=== PATIENT | female | born 1955 | race African-American/Black ===

== ENCOUNTER 2017-03-22 14:34 | Inpatient (IN) | payer OTHER ==
[2017-03-22] VITALS (23 sets, daily range): BP systolic 67–124; BP diastolic 33–88; PULSE 94–135; RESP 12–20; TEMP 96.5; Ht 170.2 cm; Wt 86.2 kg
[~2017-03-22] VITALS: Ht 170.2 cm; Wt 86.2 kg
[2017-03-22] MEDS ORDERED: SOD CHLORIDE 0.9% 500 ML IV STA (14:41)
--- NOTE | 2017-03-22 15:18 | RADRPT ---
PROCEDURE: CT Brain without contrast. CLINICAL INDICATION: Fall. Respiratory distress. Cardiac arrest. TECHNIQUE: A CT of the brain was performed on a GE 64-slice CT scanner utilizing axial imaging fro m the skull base through the vertex without intravenous contrast. Multiplanar reformatted images wer e made. The CTDIvol is 45.01 mGy and the DLP is 720.23 mGycm. DICOM images are available. One or more of the following dose reduction techniques were used: - Automated exposure control. - Adjustment of the mA and/or kV according to patient size. - Use of iterative reconstruction technique. COMPARISON: None. FINDINGS: There is no intracranial hemorrhage, mass effect, or midline shift. No extra-axial fluid collection is seen. Mild parenchymal volume loss is identified. The ventricles are proportionate in size. The re is no evidence of hydrocephalus. Moderate decreased attenuation is seen in the periventricular a nd deep white matter, compatible with microvascular ischemic disease. The pace white matter differen tiation is well preserved with no acute infarct detected. The osseous structures and visualized paranasal sinuses are unremarkable. IMPRESSION: 1. No evidence of acute intracranial pathology. 2. Mild generalized parenchymal volume loss. 3. Moderate microvascular ischemic disease in the periventricular and deep white matter. RPTAT: HRSR Physician Nikolai Date Time Electronically viewed and signed by Physician Nikolai on 03/22/2017 15:18 RR/
[2017-03-22] MEDS ORDERED: EPINEPHrine 0.1 MG/ML SYG ONE (16:00)
[2017-03-22] MEDS ORDERED: ATROPINE 1 MG/10 ML SYRINGE ONE (16:00)
[2017-03-22] MEDS ORDERED: NA BICARBONATE 8.4% 50 ML SYG ONE ×2 (16:00→21:03)
[2017-03-22 16:06] LABS: PT RATIO 1.6
--- NOTE | 2017-03-22 16:09 | ERD ---
ER Documentation Chief Complaint Chief Complaint STEMI HPI This is a 61-year-old female who was transferred here from [place] for STEMI. The ER physician there called me at home and the patient got to the emergency room there and then had sudden respiratory distress and had an EKG that demonstrated inferior STEMI with reciprocal changes. He said he try to transfer to [facility] but they would not accept his it did not feel like the EKG showed a STEMI. When EMS arrived with the patient she was on a dopamine drip and was intubated. Apparently the patient had coded at [place] for a few minutes and went into [facility] then was resuscitated. I did not know of this incident from the ER physician there. On arrival the patient is intubated and on a dopamine drip. The report from the emergency room nurse from [place] , who accompanied the patient, was at the patient was standing on a stool and fell. Again, I was not notified of this from the emergency room physician report. Family arrived at the emergency department approximately 330 and told me that she was standing on a step stool in the bathroom cleaning the wall when she lost her balance and fell hitting her left upper quadrant on the side of the toilet. The patient was having vomiting at home that was nonbloody and started having uncontrollable bowel movements. She refused to go to the emergency room for a few hours and they convinced her to go and they went to [place]. ROS All systems reviewed and are negative except as per history of present illness. FmHx Unable to obtain due to intubation Physical Exam Vitals Vital Signs Date Time Temp Pulse Resp B/P Pulse Ox O2 Delivery O2 Flow Rate FiO2 03/22/17 15:10 91 25 100 100 03/22/17 14:45 94.5 97 20 94/72 88 Physical Exam Const: Well-developed, well-nourished Head: Atraumatic, normocephalic Eyes: Normal Conjunctiva, bilateral pupils are dilated and sluggish, normal sclera, no nystagmus ENT: Normal External Ears, Nose and Mouth, moist mucus membranes, intubated. Neck: C-collar applied] Resp: Clear to auscultation bilaterally, no wheezing, rhonchi, rales Cardio: Irregular rhythm normal rate , no murmurs, S1 S2 present Abd: Soft, non distended, no pulsitile abdominal masses Skin: No petechiae or rashes, no ecchymosis , no maculopapular rash Back: Unexamined Ext: No cyanosis, or edema,normal inspection, vascularly intact x 4 Neur: GCS of 3 Psych: Unable to obtain Result Diagram: 03/22/17 1615 03/22/17 1615 Results 24 hrs Laboratory Tests Test 03/22/17 16:15 White Blood Count 14.410^3/ul Red Blood Count 1.3910^6/ul Hemoglobin 4.2g/dl Hematocrit 14.1% Mean Corpuscular Volume 101.4fl Mean Corpuscular Hemoglobin 30.2pg Mean Corpuscular Hemoglobin Concent 29.8g/dl Red Cell Distribution Width 13.5% Platelet Count 00462^3/UL Mean Platelet Volume 10.9fl Neutrophils % % Segmented Neutrophils % (Manual) 58% Band Neutrophils % (Manual) 20% Lymphocytes % % Lymphocytes % (Manual) 19% Monocytes % % Monocytes % (Manual) 1% Eosinophils % % Basophils % % Myelocytes % (Manual) 2% Nucleated Red Blood Cells % 0.2/100WBC Neutrophils # 10^3/ul Neutrophils # (Manual) 8.810^3/ul Band Neutrophils # 2.810^3/ul Absolute Lymphocytes (Manual) 2.710^3/ul Lymphocytes # 10^3/ul Monocytes # 10^3/ul Absolute Monocytes (Manual) 0.110^3/ul Eosinophils # 10^3/ul Basophils # 10^3/ul Myelocytes # 0.210^3/ul Nucleated Red Blood Cells # 10^3/ul Platelet Estimate DECREASED Hypochromasia 1+ Poikilocytosis 2+ Anisocytosis 1+ Macrocytosis 2+ Prothrombin Time 22.9Sec Prothrombin Time Ratio 1.6 INR International Normalized Ratio 1.97 Activated Partial Thromboplast Time > 180.0Sec Sodium Level 142mmol/L Potassium Level 3.6mmol/L Chloride Level 112mmol/L Carbon Dioxide Level 5mmol/L Anion Gap 29 Blood Urea Nitrogen 12mg/dl Creatinine 1.44mg/dl Glucose Level 343mg/dl Calcium Level 7.3mg/dl Total Bilirubin 0.1mg/dl Direct Bilirubin 0.00mg/dl Indirect Bilirubin 0.1mg/dl Aspartate Amino Transf (AST/SGOT) 541IU/L Alanine Aminotransferase (ALT/SGPT) 468IU/L Alkaline Phosphatase 68IU/L Troponin I 0.038ng/ml B-Type Natriuretic Peptide 729PG/ML Total Protein 4.4g/dl Albumin 2.0g/dl Globulin 2.40g/dl Albumin/Globulin Ratio 0.83 Lipase 388U/L Current Medications Medications (Trade) Dose Ordered Sig/[place] Route PRN Reason Start Time Stop Time Status Last Admin Dose Admin Sodium Chloride (NS) 500 ml @ 500 mls/hr Q1H STAT IV 03/22/17 14:41 03/22/17 15:40 DC IV Flush 10 ml 10 ml STK-MED ONCE .ROUTE 03/22/17 16:16 03/22/17 16:17 DC Sodium Chloride 100 ml @ ud STK-MED ONCE .ROUTE 03/22/17 16:16 03/22/17 16:17 DC Iohexol (Omnipaque) 100 ml @ ud STK-MED ONCE .ROUTE 03/22/17 16:16 03/22/17 16:17 DC Iohexol (Omnipaque 350mg/ ml) 50 ml STK-MED ONCE .ROUTE 03/22/17 16:16 03/22/17 16:17 DC Gelatin (Gelfoam) 4 sponge STK-MED ONCE .ROUTE 03/22/17 17:37 03/22/17 17:38 DC Thrombin 80566 units 30,000 units STK-MED ONCE .ROUTE 03/22/17 17:37 03/22/17 17:38 DC Heparin Sodium/ Sodium Chloride (Heparin 1000 Units/NS (A-Line)) 500 ml @ ud STK-MED ONCE .ROUTE 03/22/17 17:37 03/22/17 17:38 DC Procedures/MDM PROCEDURE: CT Brain without contrast. CLINICAL INDICATION: Fall. Respiratory distress. Cardiac arrest. TECHNIQUE: A CT of the brain was performed on a GE 64-slice CT scanner utilizing axial imaging from the skull base through the vertex without intravenous contrast. Multiplanar reformatted images were made. The CTDIvol is 45.01 mGy and the DLP is 720.23 mGycm. DICOM images are available. One or more of the following dose reduction techniques were used: - Automated exposure control. - Adjustment of the mA and/or kV according to patient size. - Use of iterative reconstruction technique. COMPARISON: None. FINDINGS: There is no intracranial hemorrhage, mass effect, or midline shift. No extra- axial fluid collection is seen. Mild parenchymal volume loss is identified. The ventricles are proportionate in size. There is no evidence of hydrocephalus. Moderate decreased attenuation is seen in the periventricular and deep white matter, compatible with microvascular ischemic disease. The pace white matter differentiation is well preserved with no acute infarct detected. The osseous structures and visualized paranasal sinuses are unremarkable. IMPRESSION: 1. No evidence of acute intracranial pathology. 2. Mild generalized parenchymal volume loss. 3. Moderate microvascular ischemic disease in the periventricular and deep white matter. RPTAT: HRSR Physician Nikolai Date Time Electronically viewed and signed by Josue Solis Physician on 03/22/2017 15 :18 RR/ CC: KRISTI BHAGAT DO Reviewed [place] EKG and this is not a STEMI., [place] was shown and agreed, dr hickey Central Line Placement by me: Patient consented, sterilely draped, full prep, gown, glove, mask, time out performed. Anesthesia: None Location: Right femoral Device: Multiple lumen Technique: Seldinger technique. Secured with suture. Results: Venous return from all ports with easy saline flush. No complications. [XOXOXO]Guide wire retrieved and disposed of. FAST exam done by a supply technician with preliminary report at bedside with spleen laceration with hematoma around it with extensive amount of echogenic fluid in the abdominal cavity on the right and left side consistent with blood Spoke with general surgery Dr. De Jesus at 1610. Told me to get a CT abdomen with IV contrast that he will be here in 30 minutes. Will start O- blood now blood pressure is labile. EKG: Rate/Rhythm: Atrial fibrillation heart rate 104, ST elevation in lead III, ST depression in lead I and aVL, in all precordial leads QRS, ST, QT: NORMAL UT, QRS, QT] Impression: Abnormal EKG Critical Care Time: 60 minutes Treatments/Evaluations: Close monitoring and treatment of unstable vital signs, cardiorespiratory, and neurologic status, while maintaining tight balance of fluid, respiratory, and cardiac interventions. This time includes discussing the case with the patient and the patient's family. This time does not include all procedures stated elsewhere in this record. This time also includes reviewing old records, labs and radiological studies. This time includes examining and re-examining the patient. Additionally, this time also includes arranging care with admitting and consulting physicians. Hemoglobin returned at 4.2. Dr. De Jesus notified. He is here in the ER seeing her at 1640. Patient is going to the OR. He reviewed the CAT scan which demonstrates active bleeding. She has been type and cross for 4 units we will add 4 more. O- blood is being hung now approximately 5 PM Patient will go to the OR now for operative repair of the spleen , or removal The patient's PTT came back greater than 180 with an INR 1.96. The patient did receive heparin according to paperwork from [facility]. I will order protamine sulfate 50 mg IV as well as 3 units of FFP to be given stat prior to OR now. Departure Diagnosis: Primary Impression: Splenic laceration Encounter type: initial encounter Qualified Code: S36.039A - Laceration of spleen, initial encounter Additional Impressions: Hypotension Hypotension type: unspecified hypotension type Qualified Code: I95.9 - Hypotension, unspecified hypotension type Cardiac arrest Condition: Critical KRISTI BHAGAT DO Mar 22, 2017 16:09
[2017-03-22] MEDS ORDERED: SOD CHLORIDE 0.9% 100 ML ONE (16:16)
[2017-03-22] MEDS ORDERED: IOHEXOL 350MG/ML 50 ML BTL ONE (16:16)
[2017-03-22] MEDS ORDERED: IOHEXOL 100 ML ONE (16:16)
[2017-03-22 16:28] LABS: ALBUMIN/GLOBULIN RATIO 0.83; BILIRUBIN,INDIRECT 0.1 mg/dl (0-1.1); BILIRUBIN,TOTAL 0.1 mg/dl (0.2-1.3); CALCIUM 7.3 mg/dl (8.4-10.2); CREATININE 1.44 mg/dl (0.44-1.00); POTASSIUM 3.6 mmol/L (3.5-5.1); TOTAL PROTEIN 4.4 g/dl (6.1-8.1)
[2017-03-22 16:32] LABS: ABNORMAL IP MESSAGE 1; HEMATOCRIT 14.1 % (37.0-47.0); MEAN CORPUSCULAR HEMOGLOBIN 30.2 pg (29.0-33.0); MEAN CORPUSCULAR HGB CONC 29.8 g/dl (32.0-37.0); MEAN CORPUSCULAR VOLUME 101.4 fl (82.0-101.0); MEAN PLATELET VOLUME 10.9 fl (7.4-10.4); NUCLEATED RED BLOOD CELLS% 0.2 /100WBC (0.0-0.0); PLATELET COUNT 112 10^3/UL (140-415); RED BLOOD COUNT 1.39 10^6/ul (4.20-5.40); RED CELL DISTRIBUTION WIDTH 13.5 % (11.5-14.5); WHITE BLOOD COUNT 14.4 10^3/ul (4.8-10.8)
[2017-03-22 16:36] LABS: TROPONIN-I 0.038 ng/ml (0.00-0.12)
[2017-03-22 16:38] LABS: HEMOGLOBIN 4.2 g/dl (12.0-16.0); POSITIVE DIFF @See below
[2017-03-22 16:55] LABS: INR 1.97; PROTIME 22.9 Sec (11.9-14.9)
--- NOTE | 2017-03-22 16:58 | CONS ---
Date/Time of Note Date/Time of Note DATE: 03/22/17 TIME: 16:54 Assessment/Plan Assessment/Plan Additional Assessment/Plan Splenic rupture with active extravasation Patient requires urgent laparotomy and splenectomy I discussed the benefits, risks, alternatives in detail with the . All questions were answered. The patient elects to proceed Consultation Date/Type/Reason Admit Date/Time Date of Consultation: Mar 22, 2017 Hx of Present Illness The patient is a 7-year-old female who was transferred from an outside hospital for with a diagnosis of STEMI. However, on further workup in the ER here, patient was found to have a ruptured spleen. The patient is now currently intubated on pressors. A CT with IV contrast shows active extravasation. I am unable to get more history from the patient as she is intubated. I was called for consultation. Past Medical History Medical History: other (Unable to obtain) Past Surgical History Past Surgical Hx: other (Unable to obtain) Family History Significant Family History: other (Unable to obtain) Social History Smoking Status: Never smoker Exam/Review of Systems Vital Signs Vitals Vital Signs Date Time Temp Pulse Resp B/P Pulse Ox O2 Delivery O2 Flow Rate FiO2 03/22/17 15:10 91 25 100 100 03/22/17 14:45 94.5 94/72 Exam Constitutional: other (Intubated and sedated) Head: normocephalic Eyes: nl conjunctiva ENMT: nl external ears & nose Neck: supple Respiratory: clear to auscultation Cardiovascular: regular rate and rhythm Gastrointestinal: other (Moderately distended and left upper quadrant tenderness) Neurological: UNIVERSITY PROFESSOR II-XII intact Skin: nl turgor Results Result Diagram: 03/22/17 1615 03/22/17 1615 Results 24 hrs Laboratory Tests Test 03/22/17 16:15 White Blood Count 14.4 H Red Blood Count 1.39 L Hemoglobin 4.2 *L Hematocrit 14.1 L Mean Corpuscular Volume 101.4 H Mean Corpuscular Hemoglobin 30.2 Mean Corpuscular Hemoglobin Concent 29.8 L Red Cell Distribution Width 13.5 Platelet Count 112 L Mean Platelet Volume 10.9 H Neutrophils % Lymphocytes % Monocytes % Eosinophils % Basophils % Nucleated Red Blood Cells % 0.2 H Neutrophils # Lymphocytes # Monocytes # Eosinophils # Basophils # Nucleated Red Blood Cells # Prothrombin Time Pending Prothrombin Time Ratio 1.6 INR International Normalized Ratio Pending Activated Partial Thromboplast Time Pending Sodium Level 142 Potassium Level 3.6 Chloride Level 112 H Carbon Dioxide Level 5 *L Anion Gap 29 H Blood Urea Nitrogen 12 Creatinine 1.44 H Glucose Level 343 H Calcium Level 7.3 L Total Bilirubin 0.1 L Direct Bilirubin 0.00 Indirect Bilirubin 0.1 Aspartate Amino Transf (AST/SGOT) 541 H Alanine Aminotransferase (ALT/SGPT) 468 H Alkaline Phosphatase 68 Troponin I 0.038 B-Type Natriuretic Peptide 729 H Total Protein 4.4 L Albumin 2.0 L Globulin 2.40 Albumin/Globulin Ratio 0.83 Lipase 388 H Imaging Free Text/Dictation CT of the abdomen and pelvis, which I discussed with Dr. Millan, shows active extravasation from the spleen THOM MCGOVERN MD Mar 22, 2017 16:58
[2017-03-22 17:15] LABS: ANISOCYTOSIS 1+ (0-0); BURR CELLS 2+ (0-0); HYPOCHROMASIA 1+ (0-0); MONOCYTES % (M) 1 % (0-11); MYELOCYTES % (M) 2 % (0-0); PLATELET ESTIMATE DECREASED; POIKILOCYTOSIS 2+ (0-0)
[2017-03-22] MEDS ORDERED: THROMBIN 5000 UNIT VIAL ONE (17:37)
[2017-03-22] MEDS ORDERED: GELATIN SIZE 100 SPONGE ONE (17:37)
[2017-03-22 17:44] LABS: PARTIAL THROMBOPLASTIN TIME > 180.0 Sec (25.0-35.0)
--- NOTE | 2017-03-22 17:52 | RADRPT ---
PROCEDURE: CT abdomen and pelvis with contrast. CLINICAL INDICATION: Abdominal pain following trauma TECHNIQUE: CT scan of the abdomen and pelvis with contrast was performed. Coronal and sagittal im ages were also reformatted. 100 cc Omnipaque-300 intravenous contrast was administered without comp lication. One or more of the following dose reduction techniques were used: Automated exposure contr ol, adjustment of the mA and/or kV according to patient size, use of iterative reconstruction techni que. Total exam CTDIvol = 17.51 mGy and DLP = 99 93.43 mGy-cm. COMPARISON: Ultrasound 03/22/2017 FINDINGS: Visualized lower thorax: Bibasilar dependent subsegmental atelectasis is present greater on the righ t. A tiny left posterior costophrenic angle pneumothorax is present. There is no evidence for pleur al effusion. Liver, gallbladder, pancreas and spleen: Some nodular appearance to the hepatic contour is noted un able to exclude early changes of cirrhosis with hepatic steatosis, the liver normal in size. There is no evidence of hepatic laceration or subcapsular hematoma. No liver mass or ductal dilatation is present. The hepatic arterial system is unremarkable. The gallbladder is unremarkable. No common b ile duct dilatation is evident. The pancreas is normal. The spleen is markedly abnormal without co ntrast extravasation, findings compatible with splenic rupture with adjacent hemoperitoneum. Adrenal glands and genitourinary system: The adrenal glands are normal bilaterally. The kidneys kate w mild renal cortex thinning but otherwise unremarkable. The ureters are unremarkable. The urinary bladder is contracted around a [place] catheter. The uterus is either atrophic or surgically removed , not well visualized. Gastrointestinal system: A nasogastric tube is present within the stomach, the stomach contracted a round it. There is some mild thickening of the wall of the jejunum but there is enhancement of the bowel wall and no evidence of ileus or obstruction. There is no evidence of appendicitis. A normal amount of fecal debris is present within the colon and there is no wall thickening to suggest coliti s. Peritoneum, retroperitoneum, vessels and lymph nodes: The abdominal aorta is normal in caliber. Th ere is mild aortic atherosclerotic calcification. Inferior vena cava is small in size raising concer n for hypovolemia. There is no evidence for adenopathy. A moderate amount of peritoneal cavity flu id is present with an attenuation of 26 HU most compatible with hemoperitoneum. There is no evidence of pneumoperitoneum. Osseous structures and musculoskeletal system: The visualized lower ribs show no evidence of fractu re. There is no finding to suggest lumbosacral fracture. Incidental degenerative anterolisthesis of L4-5 is present. The pelvic bones and proximal femoral unremarkable. No subcutaneous abnormalities are present. RPTAT:HJJR IMPRESSION: 1. Abnormal extravasation within the a scattered lacerated spleen, the splenic injury believed to be grade IV-V. 2. Moderate to marked hemoperitoneum is present. Critical results discussed by telephone with Dr. Ale avila at 17:09 3. Tiny left inferior pneumothorax. 4. No evidence of obvious fracture. 5. Nasogastric tube and right inguinal central venous access catheter in satisfactory positions. Physician Kiko Date Time Electronically viewed and signed by Physician Kiko on 03/22/2017 17:10 JR/
--- NOTE | 2017-03-22 17:52 | RADRPT ---
PROCEDURE: CT cervical spine without contrast CLINICAL INDICATION: Neck pain, trauma TECHNIQUE: CT scan of the cervical spine was performed on a multidetector CT scanner.. No IV cont rast was administered. Coronal and sagittal reformatted images were obtained from the axial source images. Images were reviewed on a high-resolution PACS workstation. CTDI = 22.33 mGy DLP: 61 5.3 mGy-cm DICOM Images are available One or more of the following dose reduction techniques were used: Automated exposure control Adjustment of the mA and / or kV according to patient size Use of iterative reconstruction technique. COMPARISON: None. FINDINGS: There is no CT evidence of acute fracture or subluxation. There is a small remote ununited spinous p rocess fracture of C7 There is straightening and slight reversal of the usual cervical lordosis. Vertebral body heights ar e preserved. There is mild to moderate multilevel degenerative disc disease from C3-C4 through C6-C7 with degener ative anterior enthesopathy and uncovertebral hypertrophy. There is multilevel facet arthrosis, most prominent at C4-C5 on the right, moderate in degree. There is moderate left foraminal stenosis at C5-C6 and mild bilateral foraminal stenosis at C6-C7. The patient is intubated. The lung apices are clear. The paraspinal soft tissues are grossly unremarkable. IMPRESSION: 1. No CT evidence of acute fracture or subluxation of the cervical spine. 2. Slight reversal of the usual cervical lordosis. 2. Mild to moderate multilevel degenerative changes of the cervical spine as above. RPTAT: UU .Tylor More MD, Date Time Electronically viewed and signed by .Tylor More MD, MD on 03/22/2017 15:27 .K/
--- NOTE | 2017-03-22 17:52 | RADRPT ---
PROCEDURE: Chest x-ray CLINICAL INDICATION: Intubation TECHNIQUE: Chest single view COMPARISON: None FINDINGS: There is endotracheal tube which terminates 2.5 cm above the arlene. heart is normal in size. The p ulmonary vessels are normal in caliber. The lungs are clear. The costophrenic angles are sharp. T he visualized bony thorax is unremarkable. IMPRESSION: 1. Endotracheal tube terminates 2.5 cm above the arlene. 2. Lungs clear RPTAT: HH .Cory Abarca MD, Date Time Electronically viewed and signed by .Cory Abarca MD, on 03/22/2017 15:30 .W/
--- NOTE | 2017-03-22 17:52 | RADRPT ---
PROCEDURE: Abdominal ultrasound CLINICAL INDICATION: Abdominal pain TECHNIQUE: Mcmahan scale ultrasound images of the four abdominal quadrant was performed for evaluatio n of ascites/free fluid. COMPARISON: None. FINDINGS: Moderate free fluid. Abnormal echogenicity of the liver and spleen. IMPRESSION: Moderate free fluid. Abnormal echogenicity of the liver and spleen is incompletely assessed. Recommend CT scan of the abd omen and pelvis for further evaluation. RPTAT: AADD .Bowen Alonzo MD, MD Date Time Electronically viewed and signed by .Bowen Alonzo MD, MD on 03/22/2017 16:20 .B/
[2017-03-22] MEDS ORDERED: PROTAMINE 50 MG INJ IV ONE (18:00)
[2017-03-22] MEDS ORDERED: MIDAZOLAM 1 MG/ML 2 ML INJ IV ONE (18:00)
[2017-03-22] MEDS ORDERED: SOD CHLORIDE 0.9% 1,000 ML IV SCH (18:06)
[2017-03-22] MEDS ORDERED: NORepinephrine 8MG/250 ML (PMX 250 ML IV SCH (18:30)
[2017-03-22] MEDS ORDERED: hydrALAzine 20 MG INJ IV PRN (18:30)
[2017-03-22] MEDS ORDERED: ACETAMINOPHEN 325 MG TAB PO PRN (18:30)
[2017-03-22] MEDS ORDERED: morphine 2 MG INJ IV PRN ×2 (18:30→19:00)
[2017-03-22] MEDS ORDERED: ALBUTEROL/IPRATROPIUM (NEB) 3 ML AMP HHN PRN (18:30)
[2017-03-22] MEDS ORDERED: SOD CHLORIDE 0.9% 1,000 ML IV ONE ×5 (18:30→21:30)
[2017-03-22] MEDS ORDERED: HYDROCODONE/APAP (5/325) TAB PO PRN (18:30)
[2017-03-22] MEDS ORDERED: DOCUSATE SODIUM 100 MG CAP PO PRN (18:30)
[2017-03-22] MEDS ORDERED: NITROGLYCERIN (SL) 0.4 MG TAB SL PRN (18:30)
[2017-03-22] MEDS ORDERED: ONDANSETRON 4 MG INJ IV PRN ×2 (18:30→19:00)
[2017-03-22] MEDS ORDERED: NA PHOSPHATE/BIPHOS 133 ML ENEMA PR PRN (18:30)
[2017-03-22] MEDS ORDERED: MAGNESIUM HYDROXIDE 30ML CUP PO PRN (18:30)
[2017-03-22] MEDS ORDERED: LORAZEPAM 2 MG INJ IV PRN (18:30)
[2017-03-22] MEDS ORDERED: NACL 0.9% 3 ML SYG IV SCH (18:30)
[2017-03-22] MEDS: SOD CHLORIDE 0.9% 1,000 ML IV SCH (18:56)
--- NOTE | 2017-03-22 18:59 | SIPON ---
Date/Time of Note Date/Time of Note DATE: 03/22/17 TIME: 18:56 Operative Report Preoperative Diagnosis Splenic rupture Postoperative Diagnosis Same Operation/Procedure Performed Exploratory laparotomy and splenectomy Surgeon see signature line catering administrative assistant Gregorio Kulkarni Anesthesia: general Estimated blood loss: other (More than 4 L of blood in the abdomen but no bleeding from surgery) Transfusion Required 6 units PRBC Specimen Spleen Grafts/Implants none Complications none THOM MCGOVERN MD Mar 22, 2017 18:59
[2017-03-22] MEDS ORDERED: CEFAZOLIN 2 GM/50 ML (PMX) 50 ML IVPB SCH (19:00)
--- NOTE | 2017-03-22 19:05 | OPR ---
Date/Time of Note Date/Time of Note DATE: 03/22/17 TIME: 19:00 Operative Report Procedure Date: Mar 22, 2017 Preoperative Diagnosis Ruptured spleen Postoperative Diagnosis Same Operation/Procedure Performed Exploratory laparotomy and splenectomy Surgeon see signature line Machine Sole Leveler Gregorio Kulkarni MD Second Machine Sole Leveler: LYNN CRANE DO Anesthesia Type: general Estimated Blood Loss: other (6 U PRBC) Transfusion none Specimen Spleen Grafts/Implants none Complications none Disposition: PACU Indications The patient is a 7-year-old female who was transferred from another hospital for possible DE. She is actually found to have an acute abdomen with pneumoperitoneum from a ruptured spleen. She had active extravasation on CT. She was taken urgently to the OR for splenectomy. I discussed expiratory laparotomy and splenectomy with the . All benefits, risks, alternatives discussed in detail. All questions answered. The elected proceed. Procedure Description The patient was brought to operative room. She had been intubated in the ER. SCDs were applied. The abdomen was cleaned prepped and draped in sterile fashion a midline incision was made from the subxiphoid to the like is. Immediately upon entering the abdomen there is approximately 4 L of blood palpated. Suction was placed to evacuate the hemoperitoneum. The spleen was grasped bluntly posteriorly and brought up into the operative field. The spleen was shattered. I was able to control the hilum and placed a clamp across the hilum. The spleen was then transected. I then packed the upper abdomen. The hilum was then tied off with a 0 silk tie. The falciform ligament was taken down between clamps. I visualized my liver. It was hemostatic. I then ran the entire small bowel. There was no small bowel injuries noted. The omentum was normal as well. I then copiously irrigated and aspirated out the abdomen to effluent was clear. I used approximately 5 L of irrigation. I visualized my splenic bled. There was some oozing from short gastrics which was controlled with electrocautery. I then irrigated once again. I visualized the splenic bed. It was hemostatic. All laps were removed. The abdomen was then closed after verifying that sponge and needle counts were correct. The midline wound was closed with 2 0 looped PDS sutures. One started superiorly one started inferiorly and tied in the middle. The wound was then closed with isabell. A dry sterile dressing was applied. THOM MCGOVERN MD Mar 22, 2017 19:04
[2017-03-22] MEDS ORDERED: MIDAZOLAM 1 MG/ML 2 ML INJ ONE (19:06)
[2017-03-22] MEDS ORDERED: DOPamine-D5W 1.6 MG/ML 250 ML ONE (19:44)
[2017-03-22] MEDS ORDERED: ROCURONIUM 50 MG INJ ONE (20:02)
[2017-03-22] MEDS ORDERED: CEFAZOLIN 1 GM INJ ONE (20:02)
[2017-03-22] MEDS ORDERED: CA CHLORIDE 10% 10 ML SYRINGE ONE (20:02)
[2017-03-22 21:00] LABS: ABNORMAL IP MESSAGE 1; MEAN CORPUSCULAR HEMOGLOBIN 31.1 pg (29.0-33.0); MEAN CORPUSCULAR VOLUME 97.1 fl (82.0-101.0); MEAN PLATELET VOLUME 10.8 fl (7.4-10.4); NUCLEATED RED BLOOD CELLS% 0.7 /100WBC (0.0-0.0); PLATELET COUNT 134 10^3/UL (140-415); RED BLOOD COUNT 5.15 10^6/ul (4.20-5.40); RED CELL DISTRIBUTION WIDTH 13.4 % (11.5-14.5); WHITE BLOOD COUNT 18.2 10^3/ul (4.8-10.8)
[2017-03-22] MEDS ORDERED: FAMOTIDINE 20 MG INJ IV SCH (21:00)
[2017-03-22] MEDS ORDERED: SODIUM BICARBONATE (IV ADD) 100 MEQ in DEXTROSE 5% 900 ML IV SCH (21:00)
[2017-03-22 21:05] LABS: INR 2.11; PROTIME 24.2 Sec (11.9-14.9); PT RATIO 1.9
[2017-03-22] MEDS ORDERED: NA BICARBONATE 8.4% 50 ML SYG IV ONE (21:06)
[2017-03-22 21:10] LABS: POTASSIUM 3.9 mmol/L (3.5-5.1)
[2017-03-22 21:12] LABS: CREATININE 1.31 mg/dl (0.44-1.00)
[2017-03-22 21:16] LABS: HOLD TRANSMISSIONS 1; POSITIVE DIFF @See below
[2017-03-22] MEDS ORDERED: VASOPRESSIN 60 UNIT in DEXTROSE 5% 57 ML IV SCH (21:30)
[2017-03-22] MEDS: DOPamine-D5W 1.6 MG/ML 250 ML IV SCH (21:37)
[2017-03-22 21:39] LABS: TROPONIN-I 54.3 ng/ml (0.00-0.12)
[2017-03-22 21:48] LABS: PARTIAL THROMBOPLASTIN TIME 110.6 Sec (25.0-35.0)
[2017-03-22] MEDS ORDERED: PHENYLephrine 40 MG in DEXTROSE 5% 496 ML IV SCH (22:30)
[2017-03-22] MEDS: CEFEPIME 2GM/50 ML (PMX) 50 ML IVPB SCH (22:33)
--- NOTE | 2017-03-22 23:04 | HP ---
Date/Time of Note Date/Time of Note DATE: 03/22/17 TIME: 22:40 Assessment/Plan Lines/Catheters IV Catheter Type (from Nrsg): Central Line Central line still needed: Yes Assessment/Plan Assessment/Plan 1. Splenic rupture, after traumatic fall: status post emergent splenectomy -Currently patient is in critical condition. She is on 5 pressors. -She is status post blood transfusion was normalizing of hemoglobin. Monitor H& H closely -Correct coagulopathy 2. Shock, likely cardiogenic, and from hypovolemia from blood loss -Continue pressure support for now -Cardiology consult. Patient also was elevated troponin -2D echo 3. Status post PEA cardiac arrest with ROSC -Continue pressure support 4. Questionable STEMI -Cardiology consult -Trend troponin 5. Shock liver -Continue stabilizing hemodynamics -Obtain RUQ ultrasound -GI/hepatology consult 6. DIONICIO, from a volume depletion and shock -Continue stabilizing blood pressure -nephrology consult 7. Severe anemia, from splenic rupture -Status post blood transfusion -Monitor H&H and transfuse as needed 8. Severe metabolic acidosis: From shock -Continue bicarb drip HPI/ROS Admit Date/Time Admit Date/Time Hx of Present Illness This is a 61-year-old female with a history of hypertension who initially went to [facility] for shortness of breath, vomiting and diarrhea. Patient was standing on a stool in her bathtub cleaning the wall when she fell down heating the left side of her thorax/abdomen. Patient initially did not want to go to the hospital but after a few hours, when symptoms worsened and with urge of family, patient decided to go to the hospital. At [place] EKG was concerning for inferior STEMI. From the ER note, patient was going to be transferred to [facility] but they refused to accept patient because they did not think EKG was consistent with STEMI. Patient was then transferred to [facility] for higher level care. While she was at [place], she had a PEA cardiac arrest s/p resuscitation with ROSC. She presented to our ER intubated and on a dopamine drip. She was hypotensive with documented blood pressure as low as 39/22. Her hemoglobin was 4.2, bicarb 5, lactic acid 11, creatinine 1.4, glucose 340, AST and ALT about 500. Imaging shows a splenic laceration. Patient was taken to the OR and is now status post splenectomy. Patient received heparin while she was at [facility] and her PTT was 180. She was given protamine, FFP's and blood transfusion prior to surgery. EKG here showed ST elevation in lead II, ST depression and atrial fibrillation. Her initial troponin was negative but the second troponin is around 50. Currently patient is in the ICU, intubated and on 4 pressors. Her pupils are severely dilated and fixed, unresponsive to light. She had an initial ABG that shows pH of 6.5. Repeat ABG now shows a pH of 7.0, bicarb of 11. Also repeat CBC and BMP shows hemoglobin of 16 and slight improvement was her kidney function. PMH/Family/Social Past Medical History Medical History: other (Unable to obtain) Past Surgical History Past Surgical Hx: other (Unable to obtain) Social History Smoking Status: Never smoker Exam/Review of Systems Vital Signs Vitals Vital Signs Date Time Temp Pulse Resp B/P Pulse Ox O2 Delivery O2 Flow Rate FiO2 03/22/17 22:03 135 03/22/17 21:45 20 95/72 100 03/22/17 21:20 60 03/22/17 20:30 92.1 03/22/17 20:15 Mechanical Ventilator 03/22/17 14:45 15.0 Labs Result Diagram: 03/22/17202903/22/17 2030 Medications Medications Current Medications Ondansetron HCl (Zofran Inj) 4 mg Q6H PRN IV NAUSEA AND/OR VOMITING; Start at 18:30 Acetaminophen (Tylenol Tab) 650 mg Q6H PRN PO PAIN LEVEL 1-3 OR FEVER; Start 03/22/17 at 18:30 Acetaminophen/ Hydrocodone Bitart (Rheems (5/325)) 1 tab Q6H PRN PO MODERATE PAIN LEVEL 4-6; Start 03/22/17 at 18:30 Morphine Sulfate (morphine) 2 mg Q4H PRN IV SEVERE PAIN LEVEL 7-10; Start at 18:30 Docusate Sodium (Colace) 100 mg Q12H PRN PO CONSTIPATION; Start 03/22/17 at 18 :30 Magnesium Hydroxide (Milk Of Mag) 30 ml DAILY PRN PO CONSTIPATION; Start 03/22 at 18:30 Sodium Biphosphate/ Sodium Phosphate (Fleet Enema) 133 ml DAILY PRN UT CONSTIPATION; Start 03/22/17 at 18:30 Famotidine (Pepcid Iv) 20 mg Q12 IV Last administered on 03/22/17 21:26; Admin Dose 20 MG; Start 03/22/17 at 21:00 Lorazepam 0.5 mg 0.5 mg Q6H PRN IV ANXIETY; Start 03/22/17 at 18:30 Sodium Chloride (NS) 1,000 ml @ 100 mls/hr Q10H IV Last administered on 20:00; Admin Dose 100 MLS/HR; Start 03/22/17 at 18:06 Hydralazine HCl (Apresoline) 10 mg Q6H PRN IV ELEVATED BLOOD PRESSURE; Start 03/22/17 at 18:30 Nitroglycerin 1 tab 1 tab Q5M PRN SL ANGINA; Start 03/22/17 at 18:30 Cefepime HCl (Maxipime 2gm/50 ml (Pmx)) 50 ml @ 100 mls/hr Q8 IVPB Last administered on 03/22/17 22:33; Admin Dose 100 MLS/HR; Start 03/22/17 at 22: 00 Morphine Sulfate (morphine) 2 mg Q2H PRN IV PAIN LEVEL 6-10; Start 03/22/17 at 19:00 Ondansetron HCl (Zofran Inj) 4 mg Q6H PRN IV NAUSEA AND/OR VOMITING; Start at 19:00 Pantoprazole 40 mg 40 mg DAILY@06 IV ; Start 03/23/17 at 06:00 Sodium Chloride 1,000 ml @ 100 mls/hr Q10H IV ; Start 03/22/17 at 18:56 Sodium Bicarbonate 100 meq/Dextrose 1,000 ml @ 75 mls/hr [id number] IV Last administered on 03/22/17 21:32; Admin Dose 75 MLS/HR; Start 03/22/17 at 21:00 Vasopressin 60 unit/Dextrose 60 ml @ 1.2 mls/hr Q12H IV Last administered on 03/22/17 22:12; Admin Dose 2.4 MLS/HR; Start 03/22/17 at 21:30 Dopamine HCl/ Dextrose 250 ml @ 5.625 mls/ hr TITRATE IV Last administered on 03/22/17 21:37; Admin Dose 42.188 MLS/HR; Start 03/22/17 at 21:30 Phenylephrine HCl/ Dextrose (Teja-Syneph/D5W) 500 ml @ 75 mls/hr TITRATE IV ; Start 03/22/17 at 22:30 EARNEST SALINAS MD Mar 22, 2017 22:50
[2017-03-22 23:06] LABS: EOSINOPHILS # 0.2 10^3/ul (0.0-0.5); EOSINOPHILS % (M) 1 % (0.0-7.0); LYMPHOCYTES # 3.1 10^3/ul (0.8-2.9); MONOCYTE # 0.5 10^3/ul (0.3-0.9); MONOCYTES % (M) 3 % (0-11)
[2017-03-22 23:07] LABS: BURR CELLS 3+
[2017-03-22] MEDS ORDERED: SODIUM BICARBONATE (IV ADD) 100 MEQ in SOD CHLORIDE 0.45% 900 ML IV SCH (23:30)
[2017-03-23] VITALS (39 sets, daily range): BP systolic 1–117; BP diastolic -4–83; PULSE 58–143; RESP 20–23
[2017-03-23 00:24] LABS: HEMATOCRIT 30.1 % (37.0-47.0); HEMOGLOBIN 10.1 g/dl (12.0-16.0)
[2017-03-23] MEDS ORDERED: PHENYLephrine 160 MG in DEXTROSE 5% 484 ML IV SCH (00:30)
[2017-03-23] MEDS ORDERED: NORepinephrine 32 MG in DEXTROSE 5% 218 ML IV SCH (00:30)
[2017-03-23] MEDS: DOPamine-D5W 1.6 MG/ML 250 ML IV SCH ×2 (00:54→05:15)
[2017-03-23] MEDS ORDERED: EPINEPHrine 4 MG in SOD CHLORIDE 0.9% 246 ML IV SCH (02:00)
[2017-03-23] MEDS ORDERED: ALBUMIN HUMAN 25% 300 ML ONE (02:42)
[2017-03-23] MEDS ORDERED: ALBUMIN HUMAN 25% 100 ML IV ONE ×2 (03:00)
[2017-03-23] MEDS ORDERED: SOD CHLORIDE 0.9% 1,000 ML IV ONE (03:00)
[2017-03-23] MEDS: ALBUMIN HUMAN 25% 100 ML IV SCH ×3 (03:01→04:49)
[2017-03-23] MEDS: SOD CHLORIDE 0.9% 1,000 ML IV SCH (04:48)
[2017-03-23] MEDS: CEFEPIME 2GM/50 ML (PMX) 50 ML IVPB SCH (05:15)
[2017-03-23] MEDS ORDERED: PANTOPRAZOLE 40 MG INJ IV SCH (06:00)
[2017-03-23 06:26] LABS: CREATININE 1.9 mg/dl (0.44-1.00); MAGNESIUM 1.4 mg/dl (1.7-2.5); PHOSPHORUS 6.1 mg/dl (2.5-4.9); POTASSIUM 4.2 mmol/L (3.5-5.1)
[2017-03-23 06:32] LABS: HDL CHOLESTEROL 9 mg/dl (35-98); TRIGLYCERIDES 313 mg/dl (0-149)
[2017-03-23 06:33] LABS: CALCIUM 5.6 mg/dl (8.4-10.2)
[2017-03-23 06:35] LABS: CHOLESTEROL < 50 mg/dl (100-200)
[2017-03-23 07:41] LABS: ABNORMAL IP MESSAGE 1; HEMATOCRIT 12.7 % (37.0-47.0); MEAN CORPUSCULAR HEMOGLOBIN 31.3 pg (29.0-33.0); MEAN CORPUSCULAR HGB CONC 32.3 g/dl (32.0-37.0); MEAN CORPUSCULAR VOLUME 96.9 fl (82.0-101.0); NUCLEATED RED BLOOD CELLS% 2.6 /100WBC (0.0-0.0); RED BLOOD COUNT 1.31 10^6/ul (4.20-5.40); RED CELL DISTRIBUTION WIDTH 14.3 % (11.5-14.5); WHITE BLOOD COUNT 7.3 10^3/ul (4.8-10.8)
[2017-03-23] MEDS ORDERED: NA BICARBONATE 8.4% 50 ML SYG ONE (07:45)
[2017-03-23 07:56] LABS: ALBUMIN 1.8 g/dl (3.3-4.9); ALBUMIN/GLOBULIN RATIO 1.38; BILIRUBIN,INDIRECT 0.1 mg/dl (0-1.1); BILIRUBIN,TOTAL 0.1 mg/dl (0.2-1.3); CALCIUM 6.1 mg/dl (8.4-10.2); CREATININE 2.21 mg/dl (0.44-1.00); POTASSIUM 4.5 mmol/L (3.5-5.1); TOTAL PROTEIN 3.1 g/dl (6.1-8.1)
--- NOTE | 2017-03-23 08:00 | DES ---
Date/Time of Note Date/Time of Note DATE: 03/23/17 TIME: 07:55 Discharge/ Summary Admission/Discharge Info Admit Date/Time Mar 22, 2017 at 21:10 Discharge Date/Time Hx of Present Illness This is a 61-year-old female with a history of hypertension who initially went to [facility] for shortness of breath, vomiting and diarrhea. Patient was standing on a stool in her bathtub cleaning the wall when she fell down heating the left side of her thorax/abdomen. Patient initially did not want to go to the hospital but after a few hours, when symptoms worsened and with urge of family, patient decided to go to the hospital. At [place] EKG was concerning for inferior STEMI. From the ER note, patient was going to be transferred to [facility] but they refused to accept patient because they did not think EKG was consistent with STEMI. Patient was then transferred to [facility] for higher level care. While she was at [place], she had a PEA cardiac arrest s/p resuscitation with ROSC. She presented to our ER intubated and on a dopamine drip. She was hypotensive with documented blood pressure as low as 39/22. Her hemoglobin was 4.2, bicarb 5, lactic acid 11, creatinine 1.4, glucose 340, AST and ALT about 500. Imaging shows a splenic laceration. Patient was taken to the OR and is now status post splenectomy. Patient received heparin while she was at [facility] and her PTT was 180. She was given protamine, FFP's and blood transfusion prior to surgery. EKG here showed ST elevation in lead II, ST depression and atrial fibrillation. Her initial troponin was negative but the second troponin is around 50. Currently patient is in the ICU, intubated and on 4 pressors. Her pupils are severely dilated and fixed, unresponsive to light. She had an initial ABG that shows pH of 6.5. Repeat ABG now shows a pH of 7.0, bicarb of 11. Also repeat CBC and BMP shows hemoglobin of 16 and slight improvement was her kidney function. Hospital Course Patient was admitted to the ICU after she had a splenectomy. She had received multiple blood transfusions, FFP's and also initially pro time in to reverse the coagulopathy. During her ICU stay, her pressor requirements has increased, ultimately being placed on 5 pressors including epinephrine. She had severe with metabolic acidosis and has been on bicarb drip. She also had maximally dilated pupils which were nonresponsive. Unfortunately at 7:29AM, patient went into asystole. His compression started and ACLS protocol implemented immediately. Unfortunately we were unable to restore pulse and the patient was pronounced at 7:55 AM. During the code, i.e. cold patient's and informed him about what we were doing. He was planning on coming to see the patient. I have also communicated patient's condition to her and her brother any low last night when the patient was admitted to ICU. . Pending Labs/Cultures Laboratory Tests Test 03/22/17 16:15 03/22/17 20:30 03/23/17 00:05 03/23/17 05:30 White Blood Count 14.410^3/ul (4.8-10.8) 18.210^3/ul (4.8-10.8) Red Blood Count 1.3910^6/ul (4.20-5.40) 5.1510^6/ul (4.20-5.40) Hemoglobin 4.2g/dl (12.0-16.0) 16.0g/dl (12.0-16.0) 10.1g/dl (12.0-16.0) Hematocrit 14.1% (37.0-47.0) 50.0% (37.0-47.0) 30.1% (37.0-47.0) Mean Corpuscular Volume 101.4fl (82.0-101.0) 97.1fl (82.0-101.0) Mean Corpuscular Hemoglobin 30.2pg (29.0-33.0) 31.1pg (29.0-33.0) Mean Corpuscular Hemoglobin Concent 29.8g/dl (32.0-37.0) 32.0g/dl (32.0-37.0) Red Cell Distribution Width 13.5% (11.5-14.5) 13.4% (11.5-14.5) Platelet Count 74465^3/UL (140-415) 32894^3/UL (140-415) Mean Platelet Volume 10.9fl (7.4-10.4) 10.8fl (7.4-10.4) Neutrophils % % (39.0-77.0) % (39.0-77.0) Segmented Neutrophils % (Manual) 58% (39-77) 72% (39-77) Band Neutrophils % (Manual) 20% (0-4) 7% (0-4) Lymphocytes % % (15.0-51.0) % (15.0-51.0) Lymphocytes % (Manual) 19% (15-51) 17% (15-51) Monocytes % % (0.0-11.0) % (0.0-11.0) Monocytes % (Manual) 1% (0-11) 3% (0-11) Eosinophils % % (0.0-7.0) % (0.0-7.0) Basophils % % (0.0-2.0) % (0.0-2.0) Myelocytes % (Manual) 2% (0-0) Nucleated Red Blood Cells % 0.2/100WBC (0.0-0.0) 0.7/100WBC (0.0-0.0) Neutrophils # 10^3/ul (1.6-7.5) 10^3/ul (1.6-7.5) Neutrophils # (Manual) 8.810^3/ul (1.7-7.5) 13.310^3/ul (1.7-7.5) Band Neutrophils # 2.810^3/ul (0.0-0.6) 1.210^3/ul (0.0-0.6) Absolute Lymphocytes (Manual) 2.710^3/ul (0.8-2.9) 3.010^3/ul (0.8-2.9) Lymphocytes # 10^3/ul (0.8-2.9) 3.110^3/ul (0.8-2.9) Monocytes # 10^3/ul (0.3-0.9) 0.510^3/ul (0.3-0.9) Absolute Monocytes (Manual) 0.110^3/ul (0.3-0.9) 0.510^3/ul (0.3-0.9) Eosinophils # 10^3/ul (0.0-0.5) 0.210^3/ul (0.0-0.5) Basophils # 10^3/ul (0.0-0.1) 10^3/ul (0.0-0.1) Myelocytes # 0.210^3/ul (0.0-0.0) Nucleated Red Blood Cells # 10^3/ul (0.0-0.0) 10^3/ul (0.0-0.0) Platelet Estimate DECREASED Hypochromasia 1+ (0-0) Poikilocytosis 2+ (0-0) Anisocytosis 1+ (0-0) Macrocytosis 2+ (0-0) Prothrombin Time 22.9Sec (11.9-14.9) 24.2Sec (11.9-14.9) Prothrombin Time Ratio 1.6 1.9 INR International Normalized Ratio 1.97 2.11 Activated Partial Thromboplast Time > 180.0Sec (25.0-35.0) 110.6Sec (25.0-35.0) Sodium Level 142mmol/L (135-144) 144mmol/L (135-144) 146mmol/L (135-144) Potassium Level 3.6mmol/L (3.5-5.1) 3.9mmol/L (3.5-5.1) 4.2mmol/L (3.5-5.1) Chloride Level 112mmol/L (97-110) 113mmol/L (97-110) 116mmol/L (97-110) Carbon Dioxide Level 5mmol/L (21-31) 8mmol/L (21-31) 10mmol/L (21-31) Anion Gap 29 (8-16) 27 (8-16) 24 (8-16) Blood Urea Nitrogen 12mg/dl (7-20) 11mg/dl (7-20) 11mg/dl (7-20) Creatinine 1.44mg/dl (0.44-1.00) 1.31mg/dl (0.44-1.00) 1.90mg/dl (0.44-1.00) Glucose Level 343mg/dl (70-220) 241mg/dl (70-220) 125mg/dl (70-220) Calcium Level 7.3mg/dl (8.4-10.2) 7.0mg/dl (8.4-10.2) 5.6mg/dl (8.4-10.2) Total Bilirubin 0.1mg/dl (0.2-1.3) Direct Bilirubin 0.00mg/dl (0.00-0.20) Indirect Bilirubin 0.1mg/dl (0-1.1) Aspartate Amino Transf (AST/SGOT) 541IU/L (15-46) Alanine Aminotransferase (ALT/SGPT) 468IU/L (13-69) Alkaline Phosphatase 68IU/L (42-121) Troponin I 0.038ng/ml (0.00-0.12) 54.300ng/ml (0.00-0.12) 440.000ng/ml (0.00-0.12) B-Type Natriuretic Peptide 729PG/ML (0-125) Total Protein 4.4g/dl (6.1-8.1) Albumin 2.0g/dl (3.3-4.9) Globulin 2.40g/dl (1.3-3.2) Albumin/Globulin Ratio 0.83 Lipase 388U/L (23-300) Free Thyroxine 0.83ng/dl (0.78-2.44) Eosinophils % (Manual) 1% (0.0-7.0) CBC Results Faxed/Phoned 1 Lactic Acid Level 10.6mmol/L (0.5-2.0) 11.4mmol/L (0.5-2.0) Creatine Kinase 4435IU/L (23-200) 4080IU/L (23-200) Creatine Kinase Index 12.6 12.7 Creatinine Kinase MB (Mass) 560.00ng/ml (0.0-2.4) 517.00ng/ml (0.0-2.4) Phosphorus Level 6.1mg/dl (2.5-4.9) Magnesium Level 1.4mg/dl (1.7-2.5) Triglycerides Level 313mg/dl (0-149) Cholesterol Level < 50mg/dl (100-200) LDL Cholesterol, Calculated mg/dl HDL Cholesterol 9mg/dl (35-98) Cholesterol/HDL Ratio RATIO Thyroid Stimulating Hormone (TSH) 3.710MIU/L (0.465-4.680) Test 03/23/17 07:20 White Blood Count Pending Red Blood Count Pending Hemoglobin Pending Hematocrit Pending Mean Corpuscular Volume Pending Mean Corpuscular Hemoglobin Pending Mean Corpuscular Hemoglobin Concent Pending Red Cell Distribution Width Pending Platelet Count Pending Mean Platelet Volume Pending EARNEST SALINAS MD Mar 23, 2017 08:00
--- NOTE | 2017-03-23 08:13 | EN ---
Date/Time of Note Date/Time of Note DATE: 03/23/17 TIME: 08:08 ER Progress Note This is a 61-year-old female in the ICU. CODE BLUE Patient is known to me as I saw her yesterday as she had come in for a ruptured spleen went to the operative room emergently The nurse reports that the arterial line pressure gradually declined to 0 there is no further pulse. The patient is in PEA My arrival the patient is getting active CPR. The patient is maxed out on multiple vasopressors and a bicarbonate drip. The patient's pupils are dilated and nonreactive since surgery. Const: Well-developed, well-nourished Head: Atraumatic, normocephalic Eyes: Pupils fixed and dilated ENT: Normal External Ears, Nose and Mouth, intubated Neck: Full range of motion. No meningismus, Resp: Clear to auscultation bilaterally, no wheezing, rhonchi, rales Cardio: No spontaneous cardiac activity Abd: [Soft, abdominal binder on non distended. Skin: No petechiae or rashes, no ecchymosis , no maculopapular rash Back: [Not examined Ext: No cyanosis, or edema, normal inspection, Neur: GCS of 3 Psych: Unable to obtain Patient received CPR and multiple rounds of epinephrine and bicarbonate with atropine. After 20 minutes of no pulse Via Doppler, palpation, no arterial line pressure readings, the code was called at 07 56 is in route to the ICU now Dr. SALINAS aware of the situation and he is spoken to the patient's Condition: Diagnosis: Cardiac arrest KRISTI BHAGAT DO Mar 23, 2017 08:13
[2017-03-23 08:19] LABS: AADO2 Arterial 380.5 mmHg (7.0-24.0); Arterial Base Excess -29.2 mmol/L (-3.0-3); Arterial COHb 0.3 % (0.0-3.0); Arterial Fraction of Oxyhgb 98.4 % (93.0-99.0); Arterial HCO3 8.2 mmol/L (22.0-26.0); Arterial MetHb 0.5 % (0.0-1.5); Arterial Total Hemglobin 17.3 g/dl (12.0-18.0); Blood Gas Low PEEP Setting 0 cmH2O; MODE VENT - AC
[2017-03-23 08:19] LABS: Arterial Base Excess -18.4 mmol/L (-3.0-3); Arterial COHb 0.3 % (0.0-3.0); Arterial Fraction of Oxyhgb 95.3 % (93.0-99.0); Arterial HCO3 11.6 mmol/L (22.0-26.0); Arterial MetHb 0.2 % (0.0-1.5); Arterial Total Hemglobin 14.9 g/dl (12.0-18.0); Blood Gas Low PEEP Setting 0 cmH2O; MODE VENT - AC
[2017-03-23 08:36] LABS: HEMOGLOBIN 4.1 g/dl (12.0-16.0); PLATELET COUNT 71 10^3/UL (140-415); POSITIVE DIFF @See below
[2017-03-23 08:37] LABS: PROTIME > 100.0 Sec (11.9-14.9); PT RATIO 7.8
[2017-03-23 08:38] LABS: INR > 6.00; PARTIAL THROMBOPLASTIN TIME > 180.0 Sec (25.0-35.0)
[2017-03-23] MEDS ORDERED: NA BICARBONATE 8.4% 50 ML SYG IV SCH (09:00)
== END 2017-03-23 07:56 | disposition expired | DRG 799 ==
LOC: E/R 14:34 → SDS 19:14 → CCL 19:55 → ICU 21:10
PROVIDERS: ADMIT Internal Medicine; ATTEND Hospitalist
PROC: 06HY33Z Insertion of Infusion Device into Lower Vein, Percutaneous Approach (ICD-10-PCS; 2017-03-22)
PROC: 30243L1 Transfusion of Nonautologous Fresh Plasma into Central Vein, Percutaneous Approach (ICD-10-PCS; 2017-03-22)
PROC: 30243N1 Transfusion of Nonautologous Red Blood Cells into Central Vein, Percutaneous Approach (ICD-10-PCS; 2017-03-22)
PROC: 30243R1 Transfusion of Nonautologous Platelets into Central Vein, Percutaneous Approach (ICD-10-PCS; 2017-03-22)
PROC: 5A1935Z Respiratory Ventilation, Less than 24 Consecutive Hours (ICD-10-PCS; 2017-03-22)
PROC: 07TP0ZZ Resection of Spleen, Open Approach (ICD-10-PCS; principal; 2017-03-22 18:00)
DX: S36.09XA Other injury of spleen, initial encounter (principal); K72.00 Acute and subacute hepatic failure without coma; I46.9 Cardiac arrest, cause unspecified; R57.1 Hypovolemic shock; N17.9 Acute kidney failure, unspecified; E87.2 Acidosis; D68.9 Coagulation defect, unspecified; D62 Acute posthemorrhagic anemia; W17.89XA Other fall from one level to another, initial encounter; Y92.012 Bathroom of single-family (private) house as the place of occurrence of the external cause
CPT/HCPCS: 36415; 36430; 36600; 70450; 71010; 72125; 74177; 76705; 80048; 80053; 80061; 82550; 82553; 82803; 83036; 83605; 83690; 83735; 83880; 84100; 84439; 84443; 84484; 85014; 85018; 85025; 85610; 85730; 86644; 86850; 86900; 86901; 86920; 86945; 87040; 87081; 88305; 92950; 93005; 94002; 94003; 94770; J2720; C9113; J0171; J0461; J0690; J0692; J1265; J1644; J2250; J7030; J7040; J7050; J7060; J7070; P9016; P9035; P9047; P9059; Q9967